=== PATIENT | female | born 1995 | race Caucasian/White ===

== ENCOUNTER 2016-04-02 17:28 | Emergency (ER) | payer OTHER ==
[~2016-04-02] VITALS: Wt 81.0 kg
[~2016-04-02 17:28] MED LIST: FERR240T9 PO; IBUP-1542 PO; PREN-46 PO
[2016-04-02 20:26] LABS: BASOPHIL # 0.1 10^3/ul (0.0-0.1); BASOPHILS % 0.6 % (0.0-2.0); EOSINOPHILS # 0.1 10^3/ul (0.0-0.5); EOSINOPHILS % 0.9 % (0.0-7.0); HEMATOCRIT 40.1 % (37.0-47.0); HEMOGLOBIN 13.6 g/dl (12.0-16.0); LYMPHOCYTES # 3.3 10^3/ul (0.8-2.9); LYMPHOCYTES % 24.2 % (18.0-55.0); MEAN CORPUSCULAR HEMOGLOBIN 30.2 pg (29.0-33.0); MEAN CORPUSCULAR VOLUME 88.7 fl (72.0-104.0); MONOCYTE # 0.7 10^3/ul (0.3-0.9); NEUTROPHIL # 9.5 10^3/ul (1.6-7.5); NEUTROPHILS % 69.3 % (30.0-74.0); PLATELET COUNT 258 10^3/UL (140-440); RED BLOOD COUNT 4.52 10^6/ul (4.20-5.40); RED CELL DISTRIBUTION WIDTH 13.7 % (11.5-14.5); UNCORRECTED WBC 13.6 10^3/ul (4.8-10.8); WHITE BLOOD COUNT 13.6 10^3/ul (4.8-10.8)
[2016-04-02 20:47] LABS: ADD UMIC YES; URINE BILIRUBIN (Dip) NEGATIVE (NEGATIVE); URINE BLOOD (Dip) TRACE (NEGATIVE); URINE COLOR LT. YELLOW (YELLOW); URINE GLUCOSE (Dip) NEGATIVE (NEGATIVE); URINE KETONES (Dip) NEGATIVE (NEGATIVE); URINE LEUKOCYTE ESTERASE (Dip) NEGATIVE (NEGATIVE); URINE NITRITE (Dip) NEGATIVE (NEGATIVE); URINE TOTAL PROTEIN (Dip) NEGATIVE (NEGATIVE); URINE UROBILINOGEN (Dip) 0.2 E.U./dL (0.1-1.0)
[2016-04-02 20:57] LABS: CONDITION 1
[2016-04-02 20:58] LABS: BACTERIA,URINE MODERATE; URINE RBCS NONE SEEN /HPF (0)
--- NOTE | 2016-04-02 21:08 | RADRPT ---
PROCEDURE: US OB. CLINICAL INDICATION: Positive , vaginal bleeding TECHNIQUE: Transabdominal and transvaginal views of the pelvis are available for review. COMPARISON: No prior studies are available for comparison. FINDINGS: Uterus: Normal. There is no evidence of myometrial mass. Endometrial cavity: No intrauterine is identified, the thickness is measuring 12.2 mm. Right ovary / adnexa: Ovarian size is measured at 4.2 x 3.3 x 3.2 cm. Within the ovary is a hetero geneous complex cystic area without shadowing which may reflect a hemorrhagic cyst or possibly a eyal moid the finding measuring 3.1 x 3 x 2.5 cm. Normal blood flow within the ovarian tissue is present without ovarian torsion. Left ovary/adnexa: Ovarian size is normal measuring 2.8 x 2 x 1.4 cm with no evidence of ovarian or adnexal mass. Normal blood flow seen on Doppler interrogation. Cul-de-sac: No evidence of free fluid. RPTAT:HJJR IMPRESSION: 1. No intrauterine identified. Ectopic is not excluded, but there are no suspic ious findings at this time. Correlation with serial beta HCGs is suggested with followup as clinica lly indicated. 2. Right ovarian lesion of 3.1 x 3 x 2.5 cm may reflect a hemorrhagic cyst or dermoid. Physician Torres Date Time Electronically viewed and signed by Physician Torres on 04/02/2016 21:08 JR/
[2016-04-02] MEDS ORDERED: ACET325T33 PO (22:01)
[2016-04-02 22:14] VITALS: BP 127/68; PULSE 76; RESP 19; TEMP 98.6
--- NOTE | 2016-04-02 22:27 | ERD ---
ER Documentation Chief Complaint Date/Time DATE: 04/02/16 TIME: 22:23 Chief Complaint abd pain for the past 2 days with vag spotting and possible HPI 20-year-old female with no significant past medical history is a presents to the ED complaining of abdominal pain that started yesterday. Reports that it is in the lower suprapubic region. States that she was just diagnosed with being by her primary care physician yesterday. States that she took out an IUD yesterday. States that she is having slight vaginal spotting but has had to change 2 pads with bright red blood. Denies any vaginal discharge. States that the pain is worse when she presses down on her abdomen. States that she had unprotected intercourse 1 week ago with one partner, her boyfriend. States that her last menses was on March 12, 2016. Denies any chest pain, shortness of breath, nausea, vomiting, diarrhea. ROS All systems reviewed and are negative except as per history of present illness. Medications Home Meds Active Scripts Acetaminophen* (Tylenol*) 325 Mg Tablet, 1 TAB PO Q6 Y for PAIN AND OR ELEVATED TEMP, #20 TAB Prov:SHABBIR MENDOZA PA-C 04/02/16 Ibuprofen* (Ibuprofen*) 600 Mg Tab, 600 MG PO Q6, #20 0 Refills Prov:ANNAMARIE ECHEVARRIA MD 11/16/14 Reported Medications Ferrous Gluconate (Iron) 1 Tab Tablet, 1 TAB PO 11/14/14 Vit #108/Iron/Fa ( ONE TABLET) 1 Each Tablet, 1 EACH PO DAILY 02/09/13 [None] No Conflict Check 09/10/09 Allergies Allergies: Coded Allergies: peach (Verified Allergy, Severe, 11/14/14) SWOLLEN FACE, ITCHY THROAT Apple (Verified Allergy, Mild, throat swollen, 11/14/14) latex (Verified Allergy, Mild, 11/14/14) allergies to latex condom rash reaction peanut (Verified Allergy, Mild, 11/14/14) ITCHY pineapple (Verified Allergy, Mild, itchy throat, 11/14/14) watermelon (Verified Allergy, Mild, RASH, 11/14/14) Uncoded Allergies: POTATOES (Allergy, Mild, ITCHING, 07/18/10) cherries (Allergy, Mild, swollen mouth, 07/18/10) PMhx/Soc Medical and Surgical Hx: pt denies Medical Hx History of Surgery: Yes (IUD removal 04/01/16) Anesthesia Reaction: No Hx Neurological Disorder: No Hx Respiratory Disorders: No Hx Cardiac Disorders: No Hx Psychiatric Problems: No Hx Miscellaneous Medical Probl: No Hx Alcohol Use: Yes Hx Substance Use: No Hx Tobacco Use: No Smoking Status: Never smoker Physical Exam Vitals Temp 98.6 Pulse 76 Resp 19 SBP 127 DBP 68 O2 Sat 100 Physical Exam Const: Bfr-riy-lbpcesarj, well-nourished. In no acute distress. Head: Atraumatic, normocephalic Eyes: Normal Conjunctiva without injection. No purulent discharge. ENT: Normal external ear, nose. Moist oropharynx without tonsillar exudates. Non -erythematous pharynx. Uvula midline. No drooling. No trismus. Neck: No cervical midline tenderness. Full range of motion. No meningismus. No cervical lymphadenopathy. No JVD. Resp: Clear to auscultation bilaterally. No wheezing, rhonchi, rales, or crackles. No accessory muscle use. No retractions. Cardio: Regular rate and rhythm. No murmurs, rubs or gallops. Abd: Soft, slight suprapubic tenderness, non distended. Normal bowel sounds. No palpable masses. No rebound tenderness. No guarding. Negative McBurney's point. Negative psoas sign. Negative obturator sign. Skin: No petechiae or rashes Back: No midline tenderness. No CVA tenderness. Ext: No cyanosis, or edema. Neur: Awake and alert. Normal gait. Normal coordination. Psych: Normal Mood and Affect Results 24 hrs Laboratory Tests Test 04/02/16 20:05 Basophils # 0.110^3/ul Basophils % 0.6% Beta HCG, Quantitative 31.0mIU/ml Eosinophils # 0.110^3/ul Eosinophils % 0.9% Hematocrit 40.1% Hemoglobin 13.6g/dl Lymphocytes # 3.310^3/ul Lymphocytes % 24.2% Mean Corpuscular Hemoglobin 30.2pg Mean Corpuscular Hemoglobin Concent 34.0g/dl Mean Corpuscular Volume 88.7fl Mean Platelet Volume 9.0fl Monocytes # 0.710^3/ul Monocytes % 5.0% Neutrophils # 9.510^3/ul Neutrophils % 69.3% Nucleated Red Blood Cells # 0.010^3/ul Nucleated Red Blood Cells % 0.0/100WBC Platelet Count 45892^3/UL Red Blood Count 4.5210^6/ul Red Cell Distribution Width 13.7% Urine Amorphous Phosphates MANY Urine Bacteria MODERATE Urine Bilirubin NEGATIVE Urine Clarity CLOUDY Urine Color LT. YELLOW Urine Epithelial Cells FEW Urine Glucose NEGATIVE% Urine Hemoglobin TRACE Urine Ketones NEGATIVE Urine Leukocyte Esterase NEGATIVE Urine Microscopic RBC NONE SEEN/HPF Urine Microscopic WBC NONE SEEN/HPF Urine Nitrite NEGATIVE Urine Specific [place] 1.020 Urine Total Protein NEGATIVE Urine Urobilinogen 0.2 E.U./dL Urine pH 7.5 White Blood Count 13.610^3/ul Procedures/MDM This is a 20-year-old female with no significant past medical history is a presents to the ED complaining of lower abdominal pain, vaginal spotting with positive test done at her PCP's office. Patient is afebrile and nontoxic-appearing. Patient has normal vital signs. An ultrasound, beta-hCG, CBC, type and RH, UA was ordered to evaluate patient. CBC: Leukocytosis of 13.6 or anemia Urine: No elevation in nitrites, leukocyte esterase, hematuria. No evidence of UTI Rh: 13.6 No indication for Rhogam at this time. beta Hc PROCEDURE: US OB. CLINICAL INDICATION: Positive , vaginal bleeding TECHNIQUE: Transabdominal and transvaginal views of the pelvis are available for review. COMPARISON: No prior studies are available for comparison. FINDINGS: Uterus: Normal. There is no evidence of myometrial mass. Endometrial cavity: No intrauterine is identified, the thickness is measuring 12.2 mm. Right ovary / adnexa: Ovarian size is measured at 4.2 x 3.3 x 3.2 cm. Within the ovary is a heterogeneous complex cystic area without shadowing which may reflect a hemorrhagic cyst or possibly a dermoid the finding measuring 3.1 x 3 x 2.5 cm. Normal blood flow within the ovarian tissue is present without ovarian torsion. Left ovary/adnexa: Ovarian size is normal measuring 2.8 x 2 x 1.4 cm with no evidence of ovarian or adnexal mass. Normal blood flow seen on Doppler interrogation. Cul-de-sac: No evidence of free fluid. RPTAT:HJJR IMPRESSION: 1. No intrauterine identified. Ectopic is not excluded, but there are no suspicious findings at this time. Correlation with serial beta HCGs is suggested with followup as clinically indicated. 2. Right ovarian lesion of 3.1 x 3 x 2.5 cm may reflect a hemorrhagic cyst or dermoid. Patient's bleeding symptoms have stabilized while in the department. Patient was strictly instructed to return to the ED in 48 hours to repeat the beta hCG and ultrasound to rule out ectopic . Low suspicion for symptomatic anemia, sepsis, PID, appendicitis, ovarian torsion, tubo-ovarian abscess, surgical abdomen, or other emergent conditions. Patient was educated that there is a risk for threatened . Patient to follow up with [facility] or here in the ED in 2 days for repeat beta hCG and ultrasound since no IUP was seen on ultrasound. Patient is to return sooner to the ED for any worsening symptoms. Patient's questions were answered. Patient understood and agreed with discharge plan. Departure Diagnosis: Primary Impression: Vaginal bleeding before 22 weeks gestation Condition: Stable Patient Instructions: Vaginal Bleed in Referrals: [facility] YOU HAVE RECEIVED A MEDICAL SCREENING EXAM AND THE RESULTS INDICATE THAT YOU DO NOT HAVE A CONDITION THAT REQUIRES URGENT TREATMENT IN THE EMERGENCY DEPARTMENT. FURTHER EVALUATION AND TREATMENT OF YOUR CONDITION CAN WAIT UNTIL YOU ARE SEEN IN YOUR DOCTORS OFFICE WITHIN THE NEXT 1-2 DAYS. IT IS YOUR RESPONSIBILITY TO MAKE AN APPOINTMENT FOR FOLOW-UP CARE. IF YOU HAVE A PRIMARY DOCTOR --you should call your primary doctor and schedule an appointment IF YOU DO NOT HAVE A PRIMARY DOCTOR YOU CAN CALL OUR PHYSICIAN REFERRAL HOTLINE AT IF YOU CAN NOT AFFORD TO SEE A PHYSICIAN YOU CAN CHOSE FROM THE FOLLOWING [facility] [address] [facility] [address] [facility] [address] [facility] [address] [facility] [address] [facility]. [facility]. [address] [facility]. [facility] YOU HAVE RECEIVED A MEDICAL SCREENING EXAM AND THE RESULTS INDICATE THAT YOU DO NOT HAVE A CONDITION THAT REQUIRES URGENT TREATMENT IN THE EMERGENCY DEPARTMENT. FURTHER EVALUATION AND TREATMENT OF YOUR CONDITION CAN WAIT UNTIL YOU ARE SEEN IN YOUR DOCTORS OFFICE WITHIN THE NEXT 1-2 DAYS. IT IS YOUR RESPONSIBILITY TO MAKE AN APPOINTMENT FOR FOLOW-UP CARE. IF YOU HAVE A PRIMARY DOCTOR --you should call your primary doctor and schedule and appointment IF YOU DO NOT HAVE A PRIMARY DOCTOR YOU CAN CALL OUR PHYSICIAN REFERRAL HOTLINE AT . IF YOU CAN NOT AFFORD TO SEE A PHYSICIAN YOU CAN CHOSE FROM THE FOLLOWING [facility] INSTITUTIONS: [facility] [address] [place] [address] [facility] [address] [place] [address] [facility] [address] [place] [address] [facility] [place] [address] [facility] [address] [place] [address] OFFICE FAX CHRISTINE RICH [address] [place] [address] [address] [place] [address] [place] [address] JOSE DANTEVIN [address] [facility], [address] [facility] [address] [address] [address] [place] [address] [facility] [address] [place] [address] [address] [facility] [address] - [address], [place] [address] [address] [facility] [address] [facility]. [address], [place] [address] ARASH [address] [address] [place] [address] [facility] Hours: 8:00 am - 5:00 pm Additional Instructions: Return to the ED in 2 days for repeat beta Hcg and ultrasound if you cannot get an appointment to follow up with your [facility] in 2 days. Return to this facility if you are not improving as expected. SHABBIR MENDOZA PA-C Apr 02, 2016 22:27 Additional Instructions: Return to the ED in 2 days for repeat beta Hcg and ultrasound if you cannot get an appointment to follow up with your [facility] in 2 days. Return to this facility if you are not improving as expected. SHABBIR MENDOZA PA-C Apr 02, 2016 22:27
== END 2016-04-02 22:14 | disposition home or self-care (01) ==
LOC: FTE 17:28
DX: O20.9 Hemorrhage in early pregnancy, unspecified (principal); R10.30 Lower abdominal pain, unspecified; Z91.040 Latex allergy status; Z3A.00 Weeks of gestation of pregnancy not specified
CPT/HCPCS: 36415; 76801; 76817; 81001; 84702; 85025; 86900; 86901; Z7502; 81003

== ENCOUNTER 2016-04-04 19:14 | Emergency (ER) | payer OTHER ==
[~2016-04-04] VITALS: Ht 154.9 cm; Wt 79.5 kg
[~2016-04-04 19:14] MED LIST changes: +ACET325T33 PO
[2016-04-04 19:33] VITALS: Ht 154.9 cm; Wt 79.5 kg
[2016-04-04] MEDS ORDERED: SOD CHLORIDE 0.9% 1,000 ML IV STA (21:28)
[2016-04-04] MEDS ORDERED: ACETAMINOPHEN 325 MG TAB PO STA (21:28)
[2016-04-04 22:22] LABS: ADD SCAN DIFF NO
[2016-04-04 22:26] LABS: BASOPHIL # 0.1 10^3/ul (0.0-0.1); BASOPHILS % 0.4 % (0.0-2.0); EOSINOPHILS # 0.1 10^3/ul (0.0-0.5); EOSINOPHILS % 1.2 % (0.0-7.0); HEMATOCRIT 38.2 % (37.0-47.0); HEMOGLOBIN 12.6 g/dl (12.0-16.0); LYMPHOCYTES # 3.7 10^3/ul (0.8-2.9); LYMPHOCYTES % 32.4 % (18.0-55.0); MEAN CORPUSCULAR HEMOGLOBIN 29.9 pg (29.0-33.0); MEAN CORPUSCULAR VOLUME 90.5 fl (72.0-104.0); MEAN PLATELET VOLUME 10.6 fl (7.4-10.4); MONOCYTE # 0.5 10^3/ul (0.3-0.9); MONOCYTES % 4.7 % (0.0-13.0); NEUTROPHIL # 6.9 10^3/ul (1.6-7.5); NEUTROPHILS % 61.1 % (30.0-74.0); PLATELET COUNT 258 10^3/UL (140-415); RED BLOOD COUNT 4.22 10^6/ul (4.20-5.40); RED CELL DISTRIBUTION WIDTH 13.2 % (11.5-14.5); WHITE BLOOD COUNT 11.3 10^3/ul (4.8-10.8)
[2016-04-04 23:01] LABS: ADD UMIC YES; URINE BILIRUBIN (Dip) NEGATIVE (NEGATIVE); URINE BLOOD (Dip) 3+ (NEGATIVE); URINE COLOR LT. RED (YELLOW); URINE GLUCOSE (Dip) NEGATIVE (NEGATIVE); URINE KETONES (Dip) NEGATIVE (NEGATIVE); URINE LEUKOCYTE ESTERASE (Dip) NEGATIVE (NEGATIVE); URINE NITRITE (Dip) NEGATIVE (NEGATIVE); URINE TOTAL PROTEIN (Dip) 1+ (NEGATIVE); URINE UROBILINOGEN (Dip) 0.2 E.U./dL (0.1-1.0)
[2016-04-04 23:30] LABS: URINE RBCS >200 /HPF (0)
[2016-04-04 23:31] LABS: BACTERIA,URINE FEW; SQUAMOUS EPITHELIAL CELL,UR FEW
--- NOTE | 2016-04-04 23:52 | ERD ---
ER Documentation Chief Complaint Date/Time DATE: 04/04/16 TIME: 23:49 Chief Complaint vaginal bleeding x 1 day, , unknown gest age HPI Pleasant 20-year-old female coming in today with vaginal bleeding. Patient reports that she is used 2 pads today. States she was seen 2 days ago and told to come back in for repeat ultrasound and labs. Chart review shows patient had hCG quantitative was 31. Ultrasound findings for 04/02/16 as followed: Impression no uterine identified ectopic is not excluded, but there is no suspicious findings at this time. Correlation with serial beta hCG is suggested with follow-up as clinically indicated. Subsequent finding right ovarian lesion of 3.1 x 3 x 2.5 cm may reflect hemorrhagic cyst or dermoid. Patient denies cramps, pelvic pain, dysuria, reports intermittently nauseated, able to eat and drink without deficit. ROS All systems reviewed and are negative except as per history of present illness. Medications Home Meds Active Scripts Acetaminophen* (Tylenol*) 325 Mg Tablet, 1 TAB PO Q6 Y for PAIN AND OR ELEVATED TEMP, #20 TAB Prov:SHABBIR MENDOZA PA-C 04/02/16 Ibuprofen* (Ibuprofen*) 600 Mg Tab, 600 MG PO Q6, #20 0 Refills Prov:ANNAMARIE ECHEVARRIA MD 11/16/14 Reported Medications Ferrous Gluconate (Iron) 1 Tab Tablet, 1 TAB PO 11/14/14 Vit #108/Iron/Fa ( ONE TABLET) 1 Each Tablet, 1 EACH PO DAILY 02/09/13 [None] No Conflict Check 09/10/09 Allergies Allergies: Coded Allergies: peach (Verified Allergy, Severe, 11/14/14) SWOLLEN FACE, ITCHY THROAT Apple (Verified Allergy, Mild, throat swollen, 11/14/14) latex (Verified Allergy, Mild, 11/14/14) allergies to latex condom rash reaction peanut (Verified Allergy, Mild, 11/14/14) ITCHY pineapple (Verified Allergy, Mild, itchy throat, 11/14/14) watermelon (Verified Allergy, Mild, RASH, 11/14/14) Uncoded Allergies: POTATOES (Allergy, Mild, ITCHING, 07/18/10) cherries (Allergy, Mild, swollen mouth, 07/18/10) PMhx/Soc Medical and Surgical Hx: pt denies Medical Hx, pt denies Surgical Hx History of Surgery: Yes (IUD removal 04/01/16) Anesthesia Reaction: No Hx Neurological Disorder: No Hx Respiratory Disorders: No Hx Cardiac Disorders: No Hx Psychiatric Problems: No Hx Miscellaneous Medical Probl: No Hx Alcohol Use: Yes Hx Substance Use: No Hx Tobacco Use: No Smoking Status: Never smoker Physical Exam Vitals Vital Signs Date Time Temp Pulse Resp B/P Pulse Ox O2 Delivery O2 Flow Rate FiO2 04/04/16 19:33 98.1 81 20 118/68 100 Vitals stable, nursing notes reviewed Physical Exam Const: [] No acute distress Head: Eyes: ENT: Neck: . Resp: Clear to auscultation bilaterally Cardio: Regular rate and rhythm, no murmurs Abd: Abdomen soft, no epigastric tenderness, no CVA tenderness Skin: Back: No midline or flank tenderness Ext: No cyanosis, or edema Neur: Awake and alert Psych: Normal Mood and Affect Result Diagram: 04/04/162154 Results 24 hrs Laboratory Tests Test 04/04/16 21:55 04/04/16 21:59 Basophils # 0.110^3/ul Basophils % 0.4% Beta HCG, Quantitative 11.1mIU/ml Eosinophils # 0.110^3/ul Eosinophils % 1.2% Hematocrit 38.2% Hemoglobin 12.6g/dl Lymphocytes # 3.710^3/ul Lymphocytes % 32.4% Mean Corpuscular Hemoglobin 29.9pg Mean Corpuscular Hemoglobin Concent 33.0g/dl Mean Corpuscular Volume 90.5fl Mean Platelet Volume 10.6fl Monocytes # 0.510^3/ul Monocytes % 4.7% Neutrophils # 6.910^3/ul Neutrophils % 61.1% Nucleated Red Blood Cells # 0.010^3/ul Nucleated Red Blood Cells % 0.0/100WBC Platelet Count 49053^3/UL Red Blood Count 4.2210^6/ul Red Cell Distribution Width 13.2% White Blood Count 11.310^3/ul Urine Bacteria FEW Urine Bilirubin NEGATIVE Urine Clarity SLIGHTLY CLOUDY Urine Color LT. RED Urine Glucose NEGATIVE% Urine Hemoglobin 3+ Urine Ketones NEGATIVE Urine Leukocyte Esterase NEGATIVE Urine Microscopic RBC >200/HPF Urine Microscopic WBC 0-2/HPF Urine Nitrite NEGATIVE Urine Test NEGATIVE Urine Specific [place] 1.025 Urine Squamous Epithelial Cells FEW Urine Total Protein 1+ Urine Urobilinogen 0.2 E.U./dL Urine pH 6.5 Current Medications Medications (Trade) Dose Ordered Sig/Kimberly Route PRN Reason Start Time Stop Time Status Last Admin Dose Admin Sodium Chloride (NS) 1,000 ml @ 1,000 mls/hr Q1H STAT IV 04/04/16 21:28 04/04/16 22:27 DC Acetaminophen (Tylenol Tab) 650 mg ONCE STAT PO 04/04/16 21:28 04/04/16 21:30 DC Interpretation text Beta hCG 11.1. This is down from 31.0 38 hours ago. Urine hCG negative for evidence of CBC without evidence of hemorrhage or bacteremia Urinalysis without leukocytosis, nitrates, hematuria present this finding is consistent with a chief complaint of vaginal bleeding Orders-PANALPHONSE Acetaminophen Tab (Tylenol Tab) (04/04/16 21:28) Procedures/MDM Pleasant 21-year-old female presented to emergency department with vaginal bleeding. Patient was seen 48 hours prior to this visit for the same complaint. At that time she was unsure if she was . Chart review shows no intrauterine on ultrasound, hCG quantitative 31. Patient was instructed to return to follow hCG dropping ruling out ectopic . Patient denies abdominal cramping or dysuria, reports vaginal bleeding and nausea. Physical exam without acute abnormality, diagnostic testing shows hCG quantitative dropping to 11.1. Urine is negative. Ultrasound was not done. I feel the patient is stable for discharge at this time. Requires no further serial quantitative hCG. I have discussed results, examination findings, the treatment plan with the patient and family present prior to discharge. Patient should however follow up with primary care physician in the next 48 hours. Indications for emergent reevaluation in the emergency department reviewed strict return to department for worsening of vaginal bleeding, saturating peripads every hour. All questions were answered. Patient verbalizes understanding and agrees with plan of care. Departure Diagnosis: Primary Impression: Vaginal bleeding Condition: Good Additional Instructions: Thank you for for coming to [facility] for your care today. Please ask your nurse or provider if you have questions about your care today and do not leave until all your questions have been answered. Please use any medications given as directed and follow-up with your doctor (or the doctor you were referred to) in the next 2-3 days. If you do not have a primary care doctor you may follow up at the [facility] (listed below). You may also use motrin and tylenol as needed for fever and/or pain unless instructed otherwise by your provider or nurse. Indications for more urgent follow-up have been discussed, but you may return to the Emergency Department at ANY time for any worrisome or worsening symptoms. If you have abdominal pain, please know that no test or exam you received is perfect and you should follow up within 8 hours for continued pain. If you had any imaging studies today, such as an X-Ray or CT Scan, these studies will be reviewed later by a radiologist. You will be called if there are important findings that were not identified today, so make sure the contact information you provided at registration is correct. If you received any narcotic pain control medicine today, such as Vicodin, Morphine or Dilaudid, your coordination and judgment may be affected for a number of hours. Please do not drive or operate heavy machinery, and you may want someone to assist you at home. If you were given a prescription for narcotic medication, be aware that it is very addictive- use sparingly and only if necessary. ALPHONSE PERLA Apr 04, 2016 23:52
== END 2016-04-05 00:21 | disposition home or self-care (01) ==
LOC: FTE 19:14
DX: N93.9 Abnormal uterine and vaginal bleeding, unspecified (principal); Z91.010 Allergy to peanuts; Z91.040 Latex allergy status
CPT/HCPCS: 81001; 84702; 84703; 85025; J7030; Z7502; 81003; 99283